=== PATIENT | female | born 1940 | race Caucasian/White ===

== ENCOUNTER 2018-01-01 15:08 | Emergency (ER) | payer MEDICARE, MEDICAID ==
[~2018-01-01] VITALS: Ht 152.4 cm; Wt 70.5 kg
[2018-01-01 15:33] LABS: GLUCOSE,POINT OF CARE 153 MG/DL (70-110)
[2018-01-01 15:56] LABS: BASOPHILS % (AUTO) 0.6 % (0.0-2.0); EOSINOPHILS % (AUTO) 0.9 % (1.0-6.0); HEMATOCRIT 34.1 % (36-46); HEMOGLOBIN 11.5 g/dL (12.0-16.0); LYMPHOCYTES # (AUTO) 2.4 K/uL (1.0-4.8); LYMPHOCYTES % (AUTO) 33.3 % (22.0-44.0); MEAN CORPUSCULAR HEMOGLOBIN 30.3 pg (26.0-34.0); MEAN CORPUSCULAR HGB CONC 33.7 G/dL (31.0-37.0); MEAN CORPUSCULAR VOLUME 90 fL (80-100); MONOCYTES # (AUTO) 0.4 K/uL (0.1-1.0); MONOCYTES % (AUTO) 5.6 % (2.0-9.0); NEUTROPHILS # (AUTO) 4.3 K/uL (1.8-7.7); NEUTROPHILS % (AUTO) 59.6 % (40.0-70.0); PLATELET COUNT (AUTO) 273 K/uL (150-450); RED BLOOD CELL COUNT(AUTO) 3.79 MIL/uL (4.00-5.20)
[2018-01-01 16:26] LABS: CALCIUM, TOTAL 9.4 mg/dL (8.8-10.5); CREATININE 2.32 mg/dL (0.60-1.30); POTASSIUM 4.6 mmol/L (3.5-5.1)
[2018-01-01 16:31] LABS: ALBUMIN 3.7 g/dL (3.4-5.0); BILIRUBIN,TOTAL 0.4 mg/dL (0.1-1.0); TOTAL PROTEIN, SERUM 7.9 g/dL (6.4-8.2)
[2018-01-01 16:51] VITALS: BP 153/72
[2018-01-01] MEDS ORDERED: HYDR-2924 PO (17:04)
[2018-01-01] MEDS ORDERED: FERR-89 PO (17:04)
[2018-01-01] MEDS ORDERED: NPH,100V SQ ×2 (17:04)
[2018-01-01] MEDS ORDERED: ISOS5TAB5 PO (17:04)
[2018-01-01] MEDS ORDERED: ATEN50TA PO (17:04)
[2018-01-01] MEDS ORDERED: LIRA0.6P SQ (17:04)
[2018-01-01] MEDS ORDERED: ONDANSETRON HCL 4 MG TABLET PO ONE (17:30)
[2018-01-01] MEDS ORDERED: FAMOTIDINE 20 MG TABLET PO ONE (17:30)
== END 2018-01-01 18:13 | disposition home or self-care (01) ==
LOC: EMS 15:10
DX: K20.9 Esophagitis, unspecified (principal); R07.9 Chest pain, unspecified; E11.9 Type 2 diabetes mellitus without complications; I10 Essential (primary) hypertension; Z79.4 Long term (current) use of insulin
CPT/HCPCS: 36415; 71045; 80053; 82962; 84484; 85025; 93005; 99285; Q0162